=== PATIENT | female | born 1940 | race African-American/Black ===

== ENCOUNTER 2017-07-15 13:41 | Emergency (ER) | payer MEDICARE, OTHER ==
[~2017-07-15] VITALS: Ht 167.6 cm; Wt 74.8 kg
[2017-07-15 13:54] VITALS: BP 124/81
[2017-07-15] MEDS ORDERED: Lidocaine 1% 10mg/ml/Epi 0.005mg/ml 30ml vial INJ ONE ×2 (14:43→15:00)
[2017-07-15] MEDS ORDERED: Bacitracin Oint UD TOPIC ONE ×2 (15:21→15:30)
[2017-07-15] MEDS ORDERED: Clindamycin 150mg cap ORAL ONE (15:30)
[2017-07-15] MEDS ORDERED: CLINDAMYCIN HC300 MG ORAL (15:32)
[2017-07-15] MEDS ORDERED: ANTIBIOTIC28.4 GM TP (15:32)
[2017-07-15] MEDS ORDERED: TYLENOL EXTRA500 MG ORAL (15:32)
[2017-07-15 15:37] VITALS: BP 124/81
--- NOTE | 2017-07-15 16:13 | Emergency Room Report ---
History of Present Illness General Chief Complaint: Multiple Trauma/Fall Source: Patient Present Illness HPI 76-year-old female presents to ED status post trip and fall. States she tripped on a curb and landed on her left knee and hit her head. Denies LOC. She presents with bleeding from the left knee. Tetanus is up-to-date. States pain is a 1/10, dull, nonradiating. She is able to bear weight. Denies headaches, blurry vision. Denies nausea or vomiting. Denies any blood thinners. No other aggravating or relieving factors. Denies any other associated symptoms Allergies: Coded Allergies: PENICILLINS (Verified Allergy, Unknown, INFORMED TO AVOID. PT CAN NOT RECALL REACTION, 10/27/16) Patient History Past Medical History: none Past Surgical History: none Pertinent Family History: none Social History: Denies: alcohol use, drug use, smoking Now: No Immunizations: UTD Reviewed Nursing Documentation: PMH: Agreed, PSxH: Agreed Nursing Documentation-PMH Past Medical History: No Stated History Review of Systems All Other Systems: negative except mentioned in HPI Physical Exam Vital Signs Date Time Temp Pulse Resp B/P Pulse Ox O2 Delivery O2 Flow Rate FiO2 07/15/17 13:48 97.9 70 15 124/81 98 Room Air Sp02 EP Interpretation: reviewed, normal General Appearance: no apparent distress, alert, GCS 15, non-toxic Head: normocephalic, atraumatic Eyes: bilateral eye PERRL, bilateral eye normal inspection ENT: normal ENT inspection Neck: full range of motion, no bony tend, supple/symm/no masses Respiratory: normal inspection Cardiovascular #1: regular rate, rhythm, no edema Cardiovascular #2: 2+ carotid (R), 2+ carotid (L), 2+ radial (R), 2+ radial (L) , 2+ dorsalis pedis (R), 2+ dorsalis pedis (L) Gastrointestinal: normal bowel sounds, non tender, soft, non-distended, no guarding, no rebound Rectal: deferred Genitourinary: no CVA tenderness Musculoskeletal: normal range of motion, tender - L knee Neurologic: normal inspection Psychiatric: normal inspection Skin: laceration - 4cm laceration to L knee. bleeding noted. subcutaneous fat exposed. muscle noted Lymphatic: normal inspection Procedures Laceration/Wound Repair Laceration/Wound Repair : Consent: Verbal Wound Location: lower extremity - L knee Wound Explored: clean Betadine Prep?: Yes Anesthesia: Lidocaine w/ Epi Wound Debrided: minimal Wound Repaired With: netta Layer Closure?: Yes Deep Layer Suture Size/Type: 5:0, other - vicryl Sterile Dressing Applied?: Yes Splint Applied?: No Patient Tolerated: Well Complications: None Medical Decision Making Diagnostic Impression: Primary Impression: Head injury Qualified Codes: S09.90XA - Unspecified injury of head, initial encounter Additional Impression: Knee laceration Qualified Codes: S81.012A - Laceration without foreign body, left knee, initial encounter ER Course Hospital Course 76-year-old F presents to ED s/p laceration L knee s/p fall differential - fracture, dislocation, head injury Clinical course Patient placed on stretcher. After initial history and physical I ordered xray L knee, head CT X-ray unremarkable. Head CT shows no acute injury Wound is irrigated. There is subcutaneous fat noted and muscle exposure. No bony exposure. There is some arterial bleeding noted. Bleeding controlled using Vicryl suture ligated vessels and Surgicel. Anesthesia provided with lidocaine. Closed with netta bacitracin applied. Dressing applied. Diagnosis - head injury, knee laceration Stable and discharged to home with prescription for Tylenol, bacitracin. wound Care instructions given. Followup with PMD in 12-14 days for staple removal. Return to ED if any signs of infection develop Other X-Ray Diagnostic Results Other X-Ray Diagnostic Results : X-Ray ordered: L knee # of Views/Limited Vs Complete: 3 View Indication: Pain EP Interpretation: Yes Interpretation: no dislocation, no soft tissue swelling, no fractures Impression: No acute disease Interpreting ER Provider: Electronically signed by Chitra Finley MD CT/MRI/US Diagnostic Results CT/MRI/US Diagnostic Results : Imaging Test Ordered: CT head Impression no acute process Last Vital Signs Date Time Temp Pulse Resp B/P Pulse Ox O2 Delivery O2 Flow Rate FiO2 07/15/17 15:37 97.9 70 15 124/81 98 Room Air Status: improved Disposition: HOME, SELF-CARE Condition: Stable Scripts Bacitracin Zinc (ANTIBIOTIC) 28.4 Gm Oint...g. 28.4 GM TP DAILY, #28.4 GM Prov: CHITRA FINLEY M.D. 07/15/17 Acetaminophen* (TYLENOL EXTRA STRENGTH*) 500 Mg Tablet 500 MG ORAL Q8H Y for Prn Headache/Temp > 101, #30 TAB 0 Refills Prov: CHITRA FINLEY M.D. 07/15/17 Clindamycin Hcl (CLINDAMYCIN HCL) 300 Mg Capsule 300 MG ORAL THREE TIMES A DAY, #21 CAP Prov: CHITRA FINLEY M.D. 07/15/17 Patient Instructions: Laceration Care, Adult, [id number] Additional Instructions: return to ED in 12-14 days for staple removal. return to ED if any signs of infection develop CHITRA FINLEY M.D. Jul 15, 2017 16:13
--- NOTE | 2017-07-16 10:27 | Diagnostic Imaging Report ---
Indication: Head pain status post fall Technique: Continuous helical CT scanning of the head was performed utilizing automated exposure control without intravenous contrast material. Axial and coronal reconstructions were obtained. Comparison: None CT dose: Total DLP 1302 mGycm; CTDI vol 70.4 mGy Findings: There is no acute intracranial hemorrhage, mass effect or cortical edema. The ventricles, cisterns and sulci are within normal limits for age. Periventricular hypoattenuation is present. Bilateral basal ganglia calcifications are seen. The posterior fossa and fourth ventricle are unremarkable. Sellar and suprasellar regions are grossly unremarkable. Visualized mastoid air cells and paranasal sinuses are unremarkable. There is a left frontal scalp hematoma. There is no skull fracture. Impression: No evidence of acute intracranial hemorrhage, mass effect or cortical edema. Left frontal scalp hematoma without skull fracture. Nonspecific periventricular hypoattenuation suggestive of chronic ischemic microvascular changes. The CT scanner at [facility] is accredited by the [employer] and the scans are performed using protocols designed to limit radiation exposure to as low as reasonably achievable to attain images of sufficient resolution adequate for diagnostic evaluation.
--- NOTE | 2017-07-17 08:18 | Diagnostic Imaging Report ---
Indication: Left knee pain Technique: XRAY KNEE THREE VIEWS LEFT Comparison: None Findings: There is no acute fracture or dislocation. Tricompartment degenerative spurring is noted with severe medial and patellofemoral compartment joint space narrowing. There is an anterior knee soft tissue injury without radiopaque foreign body. Impression: Anterior knee/distal thigh soft tissue injury. No acute osseous abnormality. Left knee osteoarthrosis.
== END 2017-07-15 15:37 | disposition home or self-care (01) ==
LOC: EMR 14:39
DX: S09.90XA Unspecified injury of head, initial encounter (principal); S81.012A Laceration without foreign body, left knee, initial encounter; W01.10XA Fall on same level from slipping, tripping and stumbling with subsequent striking against unspecified object, initial encounter; Y93.9 Activity, unspecified; Y92.480 Sidewalk as the place of occurrence of the external cause; Z88.0 Allergy status to penicillin; M17.12 Unilateral primary osteoarthritis, left knee; S00.03XA Contusion of scalp, initial encounter
CPT/HCPCS: 70450

== ENCOUNTER 2017-07-25 12:30 | Emergency (ER) | payer OTHER ==
[~2017-07-25] VITALS: Ht 167.6 cm; Wt 70.8 kg
[~2017-07-25 12:30] MED LIST: ANTIBIOTIC28.4 GM TP; CLINDAMYCIN HC300 MG ORAL; TYLENOL EXTRA500 MG ORAL
[2017-07-25] MEDS ORDERED: NKM (12:39)
--- NOTE | 2017-07-25 12:46 | Emergency Room Report ---
History of Present Illness General Chief Complaint: Wound Recheck/Suture Removal Source: Patient Present Illness HPI This pt. was seen by Dr. Finley as he performed the initial wound closure and is familiar with this patient. Please see his note. Allergies: Coded Allergies: PENICILLINS (Verified Allergy, Unknown, INFORMED TO AVOID. PT CAN NOT RECALL REACTION, 10/27/16) Nursing Documentation-PMH Past Medical History: No Stated History Physical Exam Vital Signs Date Time Temp Pulse Resp B/P (MAP) Pulse Ox O2 Delivery O2 Flow Rate FiO2 07/25/17 12:35 98.2 87 16 120/76 95 Room Air Medical Decision Making PA Attestation Dr. ceballos is my supervising Physician whom patient management has been discussed with. ER Course This pt. was seen by Dr. Finley as he performed the initial wound closure and is familiar with this patient. Please see his note. Last Vital Signs Date Time Temp Pulse Resp B/P (MAP) Pulse Ox O2 Delivery O2 Flow Rate FiO2 07/25/17 12:35 98.2 87 16 120/76 95 Room Air Disposition: HOME, SELF-CARE Condition: Stable Scripts Trimethoprim/Sulfamethoxazole 160/800* (BACTRIM DS TABLET*) 1 Each Tablet 1 TAB ORAL Q12H, #14 TAB 0 Refills Prov: CHITRA FINLEY M.D. 07/25/17 Patient Instructions: Wound Check Sarah Guillory Jul 25, 2017 12:46
[2017-07-25] MEDS ORDERED: BACTRIM DS TAB1 EAC1 ORAL (12:52)
[2017-07-25 13:16] VITALS: BP 120/76
[2017-07-25 13:27] VITALS: BP 120/76
--- NOTE | 2017-07-26 08:11 | Emergency Room Report ---
History of Present Illness General Chief Complaint: Wound Recheck/Suture Removal Source: Patient Present Illness HPI 76-year-old female presents ED for evaluation. Patient is here for wound check. Had sustained a fall with knee lacerations 10 days ago. Was here and had laceration repaired. Patient was prescribed antibiotics. Patient states she is to be healing well but she is noticing some redness around the suture site. Denies any pain. Denies any discharge. Denies any fevers or chills. She is able to walk. No other aggravating relieving factors. Denies any other associated symptoms Allergies: Coded Allergies: PENICILLINS (Verified Allergy, Unknown, INFORMED TO AVOID. PT CAN NOT RECALL REACTION, 10/27/16) Patient History Past Medical History: none Past Surgical History: none Pertinent Family History: none Social History: Denies: smoking, alcohol use, drug use Now: No Immunizations: UTD Reviewed Nursing Documentation: PMH: Agreed, PSxH: Agreed Nursing Documentation-PMH Past Medical History: No Stated History Review of Systems All Other Systems: negative except mentioned in HPI Physical Exam Vital Signs Date Time Temp Pulse Resp B/P (MAP) Pulse Ox O2 Delivery O2 Flow Rate FiO2 07/25/17 12:35 98.2 87 16 120/76 95 Room Air Sp02 EP Interpretation: reviewed, normal General Appearance: no apparent distress, alert, GCS 15, non-toxic Head: normocephalic ENT: normal ENT inspection Neck: full range of motion Respiratory: chest non-tender, lungs clear, normal breath sounds, speaking full sentences Cardiovascular #1: regular rate, rhythm, no edema Gastrointestinal: normal inspection Rectal: deferred Genitourinary: no CVA tenderness Musculoskeletal: back normal Neurologic: alert, oriented x3, responsive, motor strength/tone normal, sensory intact, speech normal Psychiatric: normal inspection Skin: other - suture well intact, dry. some induration noted. no discharge/ fluctuance Lymphatic: normal inspection Medical Decision Making Diagnostic Impression: Primary Impression: Encounter for wound re-check ER Course Hospital Course 76-year-old F presents to ED for wound check. s/p laceration of knee Clinical course Patient placed on stretcher. Wound appears dry, intact with netta in place. There is no fluctuance or discharge. There is some induration around the staple line Shows full range of motion to the knee. Denies any pain. My suspicion for septic joint is low. Prescribed antibiotics and patient will return in a few days for staple removal. We will reevaluate the wound then Diagnosis - encounter for wound re-check Stable and discharged to home with Rx Bactrim. complete clindamycin Rx as directed. return to ED within 4 day for staple removal. Return to ED if symptoms recur/worsen Last Vital Signs Date Time Temp Pulse Resp B/P (MAP) Pulse Ox O2 Delivery O2 Flow Rate FiO2 07/25/17 13:27 98.2 16 120/76 95 Room Air 07/25/17 12:35 87 Status: improved Disposition: HOME, SELF-CARE Condition: Stable Scripts Trimethoprim/Sulfamethoxazole 160/800* (BACTRIM DS TABLET*) 1 Each Tablet 1 TAB ORAL Q12H, #14 TAB 0 Refills Prov: CHITRA KUO M.D. 07/25/17 [facility] Patient Instructions: Wound Check Additional Instructions: Take medications as directed. --have netta removed in 10-14 days after placement Follow up with a Primary Care Provider in 3-5 days, even if your symptoms have resolved. --Please review list of primary care clinics, if you do not already have a primary care provider Return sooner to ED if new symptoms occur, or current symptoms become worse. - Please note that this Emergency Department Report was dictated using [employer] technology software, occasionally this can lead to erroneous entry secondary to interpretation by the dictation equipment. CHITRA KUO M.D. Jul 26, 2017 08:11
== END 2017-07-25 13:27 | disposition home or self-care (01) ==
LOC: EMR 13:18
DX: S81.019D Laceration without foreign body, unspecified knee, subsequent encounter (principal); Z88.0 Allergy status to penicillin
CPT/HCPCS: 99283

== ENCOUNTER 2017-07-28 10:49 | Emergency (ER) | payer OTHER ==
[~2017-07-28] VITALS: Ht 165.1 cm; Wt 68.9 kg
[~2017-07-28 10:49] MED LIST changes: +BACTRIM DS TAB1 EAC1 ORAL; +NKM
[2017-07-28] MEDS ORDERED: Bacitracin Oint UD TOPIC ONE ×2 (11:26→11:30)
--- NOTE | 2017-07-28 11:29 | Emergency Room Report ---
History of Present Illness General Chief Complaint: Wound Recheck/Suture Removal Source: Patient Present Illness HPI Patient stapled 07/15. Seen with wound check. Was on antibiotics. No better. Swelling L ankle. Pain better. Better ROM. Still worried. Here for staple removal. Allergies: Coded Allergies: PENICILLINS (Verified Allergy, Unknown, INFORMED TO AVOID. PT CAN NOT RECALL REACTION, 10/27/16) Patient History Past Medical History: see triage record Social History: Denies: smoking, drug use Social History Narrative real estate and house/dog sits Reviewed Nursing Documentation: PMH: Agreed, PSxH: Agreed Nursing Documentation-PMH Past Medical History: No Stated History Review of Systems Constitutional: Denies: fever Musculoskeletal: Reports: see HPI Skin: Reports: see HPI Neurological: Denies: headache Hematologic/Lymphatic: Reports: other - bruising Physical Exam Vital Signs Date Time Temp Pulse Resp B/P (MAP) Pulse Ox O2 Delivery O2 Flow Rate FiO2 07/28/17 11:03 98.2 73 22 132/81 98 Room Air Sp02 EP Interpretation: reviewed, normal General Appearance: well appearing, no apparent distress Head: normocephalic Eyes: left eye other - ecchymoses L below eye ENT: hearing grossly normal, normal voice Neck: full range of motion, supple Respiratory: no respiratory distress, speaking full sentences Cardiovascular #2: 2+ radial (L) Musculoskeletal: gait/station normal, normal range of motion, no calf tenderness, swelling - min L lateral meniscus. Neurologic: alert, normal gait, grossly normal Psychiatric: mood/affect normal Skin: wd healing/no infection noted, other - well approximated Medical Decision Making Diagnostic Impression: Primary Impression: Removal of netta ER Course Stapled 07/15 Improved. [place] removed. Steri strips applied with bacitracin. Tolerated well. Stable for outpatient observation and treatment. Last Vital Signs Date Time Temp Pulse Resp B/P (MAP) Pulse Ox O2 Delivery O2 Flow Rate FiO2 07/28/17 11:35 85 19 125/86 98 Room Air 07/28/17 11:35 98.4 Status: improved Disposition: HOME, SELF-CARE Condition: Improved Scripts Bacitracin (Bacitracin) 28.4 Gm Oint...g. 1 APPLIC TOPIC BID, #10 GM Prov: Petar Roberts M.D. 07/28/17 Petar Roberts M.D. Jul 28, 2017 11:29
[2017-07-28] MEDS ORDERED: BACITRACIN15 GM TOPIC (11:31)
[2017-07-28 11:35] VITALS: BP 125/86
== END 2017-07-28 11:35 | disposition home or self-care (01) ==
LOC: EMR 11:35
DX: Z48.02 Encounter for removal of sutures (principal); M79.89 Other specified soft tissue disorders; Z88.0 Allergy status to penicillin
CPT/HCPCS: 99283

== ENCOUNTER 2017-08-01 11:13 | Emergency (ER) | payer OTHER ==
[~2017-08-01] VITALS: Ht 165.1 cm; Wt 70.8 kg
[~2017-08-01 11:13] MED LIST changes: +BACITRACIN15 GM TOPIC
[2017-08-01 11:43] VITALS: BP 138/84
--- NOTE | 2017-08-01 15:50 | Emergency Room Report ---
History of Present Illness General Chief Complaint: Wound Recheck/Suture Removal Source: Patient Present Illness HPI 76-year-old female presents to ED for wound check. Patient had laceration to the left knee with netta placed a few weeks ago. Patient was here a few days ago to have the netta removed and had Steri-Strips applied. Patient is here to have or Steri-Strips placed. Patient states the leg feels better. Denies any pain. Patient had some initial swelling and was placed on antibiotics. Patient states the swelling has since resolved. Denies any fevers or chills. Denies any discharge. Denies any pain. No other aggravating relieving factors. Denies any other associated symptoms Allergies: Coded Allergies: PENICILLINS (Verified Allergy, Unknown, INFORMED TO AVOID. PT CAN NOT RECALL REACTION, 10/27/16) Patient History Past Medical History: none Past Surgical History: none Pertinent Family History: none Social History: Denies: smoking, alcohol use, drug use Now: No Immunizations: UTD Reviewed Nursing Documentation: PMH: Agreed, PSxH: Agreed Nursing Documentation-PMH Past Medical History: No Stated History Review of Systems All Other Systems: negative except mentioned in HPI Physical Exam Vital Signs Date Time Temp Pulse Resp B/P (MAP) Pulse Ox O2 Delivery O2 Flow Rate FiO2 08/01/17 11:28 97.9 72 20 138/84 96 Room Air Sp02 EP Interpretation: reviewed, normal General Appearance: no apparent distress, alert, GCS 15, non-toxic Head: normocephalic Eyes: bilateral eye normal inspection, bilateral eye PERRL ENT: normal ENT inspection Neck: normal inspection Respiratory: normal inspection Cardiovascular #1: normal inspection Gastrointestinal: normal inspection Rectal: deferred Genitourinary: no CVA tenderness Musculoskeletal: back normal, gait/station normal, normal range of motion, non- tender Neurologic: normal inspection Psychiatric: normal inspection Skin: other - suture line C/D/I. no erythema/induration Lymphatic: normal inspection Medical Decision Making Diagnostic Impression: Primary Impression: Encounter for wound re-check ER Course Hospital Course 76-year-old F presents to ED for wound check. s/p staple repair of L knee laceration Clinical course Patient placed on stretcher. Wound appears clean dry and intact with induration and erythema improved compared to prior visit. Netta were subsequently removed on previous visit. Patient had Steri-Strips applied at that time. Patient thought she needed more Steri-Strips as they were coming off. I explained to patient that she does not need any at this time. The wound is well-healed No additional intervention at this time Diagnosis - encounter for wound re-check Stable and discharged to home. followup with PMD. Return to ED if any signs of infection develop Last Vital Signs Date Time Temp Pulse Resp B/P (MAP) Pulse Ox O2 Delivery O2 Flow Rate FiO2 08/01/17 11:43 97.9 20 138/84 96 Room Air 08/01/17 11:28 72 Status: improved Disposition: HOME, SELF-CARE Condition: Stable Referrals: NON PHYSICIAN (PCP) Patient Instructions: Wound Check CHITRA KUO M.D. Aug 01, 2017 15:50
== END 2017-08-01 11:45 | disposition home or self-care (01) ==
LOC: EMR 11:30
DX: S81.012D Laceration without foreign body, left knee, subsequent encounter (principal); Z88.0 Allergy status to penicillin
CPT/HCPCS: 99281

== ENCOUNTER 2017-09-14 17:03 | Emergency (ER) | payer OTHER ==
[~2017-09-14] VITALS: Ht 167.6 cm; Wt 70.8 kg
[2017-09-14 17:23] VITALS: BP 130/88
--- NOTE | 2017-09-14 17:25 | Emergency Room Report ---
History of Present Illness General Chief Complaint: General Complaint Source: Patient Present Illness HPI [id number] walk-in for "check-up" of swelling to left ankle No edema No history of CHF No recent falls Fell in June on left knee - "nothing broke" - had sutures placed here Denies fever/chills, pain to left knee, no redness, swelling History of OA Walks a lot Allergies: Coded Allergies: PENICILLINS (Verified Allergy, Unknown, INFORMED TO AVOID. PT CAN NOT RECALL REACTION, 10/27/16) Patient History Past Medical History: other - OA Past Surgical History: none Pertinent Family History: none Social History: Denies: smoking, alcohol use, drug use Now: No Immunizations: UTD Reviewed Nursing Documentation: PMH: Agreed, PSxH: Agreed Nursing Documentation-PMH Past Medical History: No Stated History Review of Systems All Other Systems: negative except mentioned in HPI Physical Exam Vital Signs Date Time Temp Pulse Resp B/P (MAP) Pulse Ox O2 Delivery O2 Flow Rate FiO2 09/14/17 17:07 98.2 86 18 137/92 96 Room Air Sp02 EP Interpretation: reviewed, normal General Appearance: normal inspection, well appearing, no apparent distress, alert, GCS 15, non-toxic Head: normocephalic, atraumatic Eyes: bilateral eye PERRL, bilateral eye EOMI ENT: normal ENT inspection, hearing grossly normal, normal voice Neck: normal inspection, full range of motion, supple, no bony tend Respiratory: normal inspection, lungs clear, normal breath sounds, no respiratory distress, no retraction, no wheezing Cardiovascular #1: regular rate, rhythm, no edema Gastrointestinal: normal inspection, normal bowel sounds, non tender, soft, no guarding, no hernia Genitourinary: no CVA tenderness Musculoskeletal: normal inspection, back normal, normal range of motion, no calf tenderness, pelvis stable, Catherine's Sign negative, other - Left leg: Scar on left knee, healing well. No palpable effusion or warmth. FOM intact. 1+ non -pitting edema to distal left ankle. 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 Afebrile No sign of infection to left knee or left ankle No history of CHF - non pitting edema Likely from OA, frequent walking Advised supportive care, PMD followup as needed Last Vital Signs Date Time Temp Pulse Resp B/P (MAP) Pulse Ox O2 Delivery O2 Flow Rate FiO2 09/14/17 17:07 98.2 86 18 137/92 96 Room Air Status: improved Disposition: HOME, SELF-CARE Condition: Improved Patient Instructions: Musculoskeletal Pain Additional Instructions: Apply ice or take tylenol only for pain/swelling to ankle/knee - Follow up with your primary care doctor as needed LIBRA LEVY M.D. Sep 14, 2017 17:25
== END 2017-09-14 17:25 | disposition home or self-care (01) ==
LOC: EMR 17:23
DX: M79.89 Other specified soft tissue disorders (principal); R60.0 Localized edema; Z88.0 Allergy status to penicillin
CPT/HCPCS: 99282

== ENCOUNTER 2017-12-18 13:17 | Emergency (ER) | payer OTHER ==
[~2017-12-18] VITALS: Ht 167.6 cm; Wt 71.2 kg
[2017-12-18 14:00] VITALS: BP 168/88
[2017-12-18 14:35] VITALS: BP 168/88
--- NOTE | 2017-12-18 14:42 | Emergency Room Report ---
History of Present Illness General Chief Complaint: Wound Recheck/Suture Removal Source: Patient Present Illness HPI Patient was initially seen by our physician assistants who reports that the patient seemed upset and therefore I did see the patient myself Speaking to the patient she reports that in June she had a laceration on her left knee She reports that since then she has had some swelling in the leg Ankle region She reports having ultrasound for DVT she reports having blood work for infection Initially complained of difficulty walking however the patient has been ambulating in the emergency room without any difficulty Patient essentially denies any new fall or trauma she reports that she recently had x-rays of the area as well which were negative Allergies: Coded Allergies: PENICILLINS (Verified Allergy, Unknown, INFORMED TO AVOID. PT CAN NOT RECALL REACTION, 10/27/16) Patient History Limited by: medical condition Pertinent Family History: none Reviewed Nursing Documentation: PMH: Agreed, PSxH: Agreed Nursing Documentation-PM Past Medical History: No Stated History Review of Systems All Other Systems: negative except mentioned in HPI Physical Exam Vital Signs Date Time Temp Pulse Resp B/P (MAP) Pulse Ox O2 Delivery O2 Flow Rate FiO2 12/18/17 13:51 98.2 73 16 168/88 98 Room Air Sp02 EP Interpretation: reviewed, normal General Appearance: well appearing, no apparent distress Head: normocephalic, atraumatic Eyes: bilateral eye PERRL ENT: hearing grossly normal, normal pharynx Musculoskeletal: normal inspection - Patient ambulating without deficit Neurologic: alert, oriented x3 Skin: other - Mild edema is noted at the ankle Medical Decision Making Diagnostic Impression: Primary Impression: Leg swelling ER Course Multiple differentials are noted Differentials such as DVT, venous insufficiency, infectious, vascular pathology Patient has from her reports fairly extensive workup including ultrasound and blood work at this time patient ambulating without any focal deficit I feel that this is something patient requires close followup with primary physician for Please note that the patient showed evidence of being upset, she reported that if her not going to do anything for her that she's going to leave. Patient said that she will not be signing anything and walked out of the emergency room after requesting her name and to be taken off Again the patient is ambulate without any focal deficit does not appear septic or toxic Last Vital Signs Date Time Temp Pulse Resp B/P (MAP) Pulse Ox O2 Delivery O2 Flow Rate FiO2 12/18/17 13:51 98.2 73 16 168/88 98 Room Air Status: unchanged Disposition: HOME, SELF-CARE Condition: Stable Referrals: [facility],REFERRING (PCP) Additional Instructions: Patient is provided with the discharge instructions notified to follow up with primary doctor in the next 2-3 days otherwise return to the er with any worsening symptoms. Please note that this report is being documented using [employer] technology. This can lead to erroneous entry secondary to incorrect interpretation by the dictating instrument. RICA QUICK D.O. Dec 18, 2017 14:42
== END 2017-12-18 15:00 | disposition home or self-care (01) ==
LOC: EMR 14:00
DX: M79.89 Other specified soft tissue disorders (principal); R60.0 Localized edema; Z88.0 Allergy status to penicillin
CPT/HCPCS: 99282

== ENCOUNTER 2018-01-31 16:00 | Outpatient (RCR) | payer OTHER | END 2018-02-24 | disposition home or self-care (01) | LOC: PTY 16:00 | DX: M25.562 Pain in left knee (principal); M25.561 Pain in right knee; M53.81 Other specified dorsopathies, occipito-atlanto-axial region; Z91.81 History of falling ==

== ENCOUNTER → 2018-03-26 | Outpatient (RCR) | payer OTHER | END | disposition home or self-care (01) | LOC: PTY 13:34 | DX: M25.561 Pain in right knee (principal); G89.29 Other chronic pain; M17.0 Bilateral primary osteoarthritis of knee; R53.81 Other malaise; Z91.81 History of falling ==

== ENCOUNTER 2019-02-02 15:25 | Emergency (ER) | payer OTHER ==
[~2019-02-02] VITALS: Ht 167.6 cm; Wt 72.6 kg
[2019-02-02 15:45] VITALS: BP 166/96
--- NOTE | 2019-02-02 15:45 | NUR ---
ED Nurse Note: pt walked in c/o left arm and shoulder numbness and pain on palpation, pt states she has been going to yoga and doing some activity and pain started since last night. pt denies chest pain, sob, sotomayor, nor n/v/d. Pt AA&ox4, gcs=15, skin warm and dry, resp even and unlabored on RA, -n/v/d, ambulates w/ steady gait, will cont monitor. VSS.
--- NOTE | 2019-02-02 16:00 | NUR ---
ED Nurse Note: blood and urine specimen sent.
--- NOTE | 2019-02-02 16:09 | Emergency Room Report ---
History of Present Illness General Chief Complaint: Pain Source: Patient Present Illness HPI The patient presents with 2 days of left arm numbness. When he began she also had a slight headache that she rated 4/10. She's been taking Tylenol for osteoarthritis in her knee and a flat foot and the headache got better with that. She's had a change in her vision for many months that she believes is because she has the wrong prescription glasses. She felt chills but had no documented fever. Denies any chest pain, palpitations, nausea, vomiting, diarrhea. At that time she had also increased weakness in both of her legs which she feels was related to the increased pain in her knee and also foot. She's not taking any medications aside from Tylenol. She doesn't feel right at this time and wants to be checked out. Patient is right-handed Allergies: Coded Allergies: PENICILLINS (Verified Allergy, Unknown, INFORMED TO AVOID. PT CAN NOT RECALL REACTION, 10/27/16) Patient History Past Medical History: see triage record Social History: Denies: smoking, alcohol use, drug use Social History Narrative real estate Last Menstrual Period: N/A Reviewed Nursing Documentation: PMH: Agreed; PSxH: Agreed Nursing Documentation-PMH Past Medical History: No Stated History Review of Systems All Other Systems: negative except mentioned in HPI Physical Exam Vital Signs Date Time Temp Pulse Resp B/P (MAP) Pulse Ox O2 Delivery O2 Flow Rate FiO2 02/02/19 15:34 98.6 85 16 161/96 100 Room Air Sp02 EP Interpretation: reviewed, normal General Appearance: well appearing, no apparent distress, GCS 15 Head: normocephalic, atraumatic Eyes: bilateral eye normal inspection, bilateral eye PERRL, bilateral eye EOMI ENT: moist mucus membranes Neck: supple Respiratory: lungs clear, normal breath sounds Cardiovascular #1: regular rate, rhythm Cardiovascular #2: 2+ radial (R) Gastrointestinal: normal inspection, normal bowel sounds, non tender, no mass, non-distended Musculoskeletal: back normal, gait/station normal, normal range of motion Neurologic: alert, oriented x3, 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 Differential includes TIA, CVA, occult ischemia, paresthesias, electrolyte imbalance amongst others. The patient will be evaluated with EKG, chest x-rays CT of the head and labs. Based on the CT she may need to be started on aspirin. Her neurologic exam at this time is normal. EKG with right bundle branch block, left axis deviation and first-degree AV block. Chest x-ray unremarkable. CT head without lesions. CBC and CMP unremarkable. Urinalysis with pyuria. Aspirin given after CT scan returned normal. Antibiotics begun for urinary tract infection. Patient states numbness is resolved. Because of the lack of risk factors it is felt that the patient does not need to be admitted for the TIA. She was advised that she needed close outpatient observation. Also she was advised that she needed neurologic workup with ultrasound of her neck in the future. The patient was advised to return if symptoms return. Blood pressure was initially slightly elevated however did not require treatment at this time. Patient stable for outpatient observation and treatment. Laboratory Tests Test 02/02/19 15:55 White Blood Count 9.0 K/UL (4.8-10.8) Red Blood Count 5.09 M/UL (4.20-5.40) Hemoglobin 15.5 G/DL (12.0-16.0) Hematocrit 47.4 % (37.0-47.0) H Mean Corpuscular Volume 93 FL (80-99) Mean Corpuscular Hemoglobin 30.5 PG (27.0-31.0) Mean Corpuscular Hemoglobin Concent 32.7 G/DL (32.0-36.0) Red Cell Distribution Width 11.6 % (11.6-14.8) Platelet Count 351 K/UL (150-450) Mean Platelet Volume 5.8 FL (6.5-10.1) L Neutrophils (%) (Auto) 56.7 % (45.0-75.0) Lymphocytes (%) (Auto) 34.6 % (20.0-45.0) Monocytes (%) (Auto) 5.9 % (1.0-10.0) Eosinophils (%) (Auto) 1.3 % (0.0-3.0) Basophils (%) (Auto) 1.5 % (0.0-2.0) Prothrombin Time 9.6 SEC (9.30-11.50) Prothrombin Time INR 0.9 (0.9-1.1) PTT 28 SEC (23-33) Urine Color Pale yellow Urine Appearance Slightly cloudy Urine pH 5 (4.5-8.0) Urine Specific [place] 1.015 (1.005-1.035) Urine Protein Negative (NEGATIVE) Urine Glucose (UA) Negative (NEGATIVE) Urine Ketones Negative (NEGATIVE) Urine Blood 1+ (NEGATIVE) H Urine Nitrite Negative (NEGATIVE) Urine Bilirubin Negative (NEGATIVE) Urine Urobilinogen Normal MG/DL (0.0-1.0) Urine Leukocyte Esterase 3+ (NEGATIVE) H Urine RBC 2-4 /HPF (0 - 2) H Urine WBC 10-15 /HPF (0 - 2) H Urine Squamous Epithelial Cells Moderate /LPF (NONE/OCC) H Urine Amorphous Sediment Few /LPF (NONE) H Urine Bacteria Few /HPF (NONE) Sodium Level 139 MMOL/L (136-145) Potassium Level 3.9 MMOL/L (3.5-5.1) Chloride Level 103 MMOL/L (98-107) Carbon Dioxide Level 28 MMOL/L (21-32) Anion Gap 8 mmol/L (5-15) Blood Urea Nitrogen 17 mg/dL (7-18) Creatinine 1.1 MG/DL (0.55-1.30) Estimate Glomerular Filtration Rate mL/min (>60) Glucose Level 91 MG/DL (74-106) Calcium Level 10.3 MG/DL (8.5-10.1) H Total Bilirubin 0.5 MG/DL (0.2-1.0) Aspartate Amino Transferase (AST) 30 U/L (15-37) Alanine Aminotransferase (ALT) 35 U/L (12-78) Alkaline Phosphatase 136 U/L (46-116) H Total Creatine Kinase 295 U/L (26-308) Troponin I 0.000 ng/mL (0.000-0.056) Pro-B-Type Natriuretic Peptide 240 pg/mL (0-125) H Total Protein 7.9 G/DL (6.4-8.2) Albumin 4.4 G/DL (3.4-5.0) Globulin 3.5 g/dL Albumin/Globulin Ratio 1.3 (1.0-2.7) EKG Diagnostic Results Rate: normal Rhythm: NSR ST Segments: no acute changes - Right bundle-branch block, left axis deviation and first-degree AV block Rhythm Strip Diag. Results EP Interpretation: yes Rhythm: NSR, no PVC's, no ectopy Chest X-Ray Diagnostic Results Chest X-Ray Diagnostic Results : Chest X-Ray Ordered: Yes # of Views/Limited/Complete: 1 View Indication: Other EP Interpretation: Yes Interpretation: no consolidation, no effusion, no pneumothorax Impression: No acute disease Electronically Signed by: Electronically signed by Petar Roberts MD CT/MRI/US Diagnostic Results CT/MRI/US Diagnostic Results : Imaging Test Ordered: Head Impression Involutional changes with small vessel disease. Last Vital Signs Date Time Temp Pulse Resp B/P (MAP) Pulse Ox O2 Delivery O2 Flow Rate FiO2 02/02/19 18:30 98.6 74 16 158/ 100 Room Air Status: improved Disposition: HOME, SELF-CARE Condition: Improved Scripts Aspirin* (ASPIRIN EC*) 325 Mg Tablet. 325 MG ORAL DAILY, #30 TAB Prov: Petar Roberts MD 02/02/19 Nitrofurantoin Monohyd/M-Cryst* (MACROBID 100 MG*) 100 Mg Capsule 100 MG ORAL EVERY 12 HOURS, #14 CAP Prov: Petar Roberts MD 02/02/19 Petar Roberts MD Feb 02, 2019 16:09
--- NOTE | 2019-02-02 16:09 | NUR ---
ED Nurse Note: pt off to head CT
--- NOTE | 2019-02-02 16:25 | NUR ---
ED Nurse Note: pt back from CT.
[2019-02-02 16:27] LABS: BASOPHILS % (AUTO) 1.5 % (0.0-2.0); EOSINOPHILS % (AUTO) 1.3 % (0.0-3.0); HEMATOCRIT 47.4 % (37.0-47.0); HEMOGLOBIN 15.5 G/DL (12.0-16.0); LYMPHOCYTES % (AUTO) 34.6 % (20.0-45.0); MEAN CORPUSCULAR VOLUME 93 FL (80-99); MONOCYTES % (AUTO) 5.9 % (1.0-10.0); NEUTROPHILS % (AUTO) 56.7 % (45.0-75.0); PLATELET COUNT 351 K/UL (150-450); RED BLOOD COUNT 5.09 M/UL (4.20-5.40); RED CELL DISTRIBUTION WIDTH 11.6 % (11.6-14.8)
[2019-02-02 16:32] LABS: BILIRUBIN, URINE NEGATIVE (NEGATIVE); COLOR,URINE PALE YELLOW; GLUCOSE, URINE (UA) NEGATIVE (NEGATIVE); KETONES,URINE NEGATIVE (NEGATIVE); LEUKOCYTE ESTERASE ,URINE 3+ (NEGATIVE); NITRITE,URINE NEGATIVE (NEGATIVE); PH,URINE 5 (4.5-8.0); PROTEIN,URINE NEGATIVE (NEGATIVE); UROBILINOGEN,URINE NORMAL MG/DL (0.0-1.0)
[2019-02-02 16:34] LABS: APPEARANCE,URINE SLIGHTLY CLOUDY
[2019-02-02 16:38] LABS: ANION GAP 8 mmol/L (5-15); BLOOD UREA NITROGEN 17 mg/dL (7-18); CALCIUM 10.3 MG/DL (8.5-10.1); CARBON DIOXIDE 28 MMOL/L (21-32); CHLORIDE 103 MMOL/L (98-107); CREATININE 1.1 MG/DL (0.55-1.30); POTASSIUM 3.9 MMOL/L (3.5-5.1); SODIUM 139 MMOL/L (136-145)
[2019-02-02 16:39] LABS: INR 0.9 (0.9-1.1)
--- NOTE | 2019-02-02 16:47 | Diagnostic Imaging Report ---
EXAM: XR Chest, 1 View CLINICAL HISTORY: WEAK TECHNIQUE: Frontal view of the chest. COMPARISON: No relevant prior studies available. FINDINGS: Lungs: No confluent consolidation. Pleural space: Unremarkable. No pneumothorax. Heart: Unremarkable. No cardiomegaly. Mediastinum: Unremarkable. Bones/joints: No acute fracture. Other findings: Peripheral based opacity in the right hemithorax. IMPRESSION: 1. Peripheral based opacity in the right hemithorax. Could be artifact from superimposed soft tissues or intrathoracic/pleural based lesion. Measures 2 x 10 cm. 2. No confluent consolidation.
--- NOTE | 2019-02-02 16:48 | Diagnostic Imaging Report ---
EXAM: CT Head Without Intravenous Contrast CLINICAL HISTORY: CVA TECHNIQUE: Axial computed tomography images of the head/brain without intravenous contrast. CTDI is 70.38+0.15 mGy and DLP is 1407 mGy-cm. One or more of the following dose reduction techniques were used: automated exposure control, adjustment of the mA and/or kV according to patient size, use of iterative reconstruction technique. COMPARISON: No relevant prior studies available. FINDINGS: Brain: No hemorrhage. No edema. Involutional changes with small vessel disease. Ventricles: No ventriculomegaly. Bones/joints: No acute fracture. Soft tissues: Unremarkable. Sinuses: No acute sinusitis. Mastoid air cells: No mastoid effusion. IMPRESSION: No acute intracranial process.
[2019-02-02 16:51] LABS: ALANINE AMINOTRANSFERASE 35 U/L (12-78); ALBUMIN 4.4 G/DL (3.4-5.0); ALBUMIN/GLOBULIN RATIO 1.3 (1.0-2.7); ALKALINE PHOSPHATASE 136 U/L (46-116); ASPARTATE AMINO TRANSFERASE 30 U/L (15-37); BILIRUBIN,TOTAL 0.5 MG/DL (0.2-1.0); CREATINE KINASE 295 U/L (26-308)
[2019-02-02] MEDS ORDERED: cefTRIAXone 1 GM in NS 55 ML IVPB ONE (17:00)
[2019-02-02] MEDS ORDERED: ASPIRIN EC325 MG ORAL (18:13)
[2019-02-02] MEDS ORDERED: NITROFURANTOIN100 M2 ORAL (18:13)
[2019-02-02 18:30] VITALS: BP_SYST 158
--- NOTE | 2019-02-02 18:31 | NUR ---
ED Nurse Note: pt cleared to be d/c per ERMD, pt discharge/aftercare instruction provided w/ prescription, pt education done via discussion and handout, iv d/c and dressing applied, wristband removed, pt advised to follow up with pcp or return to ED if sx worsen or new sx develop, pt verbalized understanding and agrees with plan, vss, ambulatory w/ steady gait, -n/v/d, resp even and unlabored on RA, left w/ all belongings.
== END 2019-02-02 18:34 | disposition home or self-care (01) ==
LOC: EMR 18:10
DX: G45.9 Transient cerebral ischemic attack, unspecified (principal); N39.0 Urinary tract infection, site not specified; Z88.0 Allergy status to penicillin; M17.10 Unilateral primary osteoarthritis, unspecified knee; M21.40 Flat foot [pes planus] (acquired), unspecified foot
CPT/HCPCS: 36415; 70450; 71045; 80053; 81003; 82550; 83880; 84484; 85025; 85610; 85730; 87086; 93005; 96365; 99284; J0696